=== PATIENT | male | born 1975 | race Caucasian/White ===

== ENCOUNTER 2019-10-27 19:38 | Emergency (ER) | payer MEDICAID ==
[~2019-10-27] VITALS: Ht 175.3 cm; Wt 74.8 kg
[2019-10-27 19:49] VITALS: BP_SYST 125
== END 2019-10-28 01:05 | disposition left against medical advice (07) ==
LOC: SED 19:38
DX: M79.661 Pain in right lower leg (principal); Z53.21 Procedure and treatment not carried out due to patient leaving prior to being seen by health care provider